=== PATIENT | female | born 1950 | race Caucasian/White ===

== ENCOUNTER 2020-11-01 11:52 | Emergency (ER) | payer BC, MEDICARE ==
[~2020-11-01] VITALS: Ht 167.6 cm; Wt 86.3 kg
--- NOTE | 2020-11-01 12:22 | EKG ---
[address] [address] Test Date: 2020-11-01 Test Time: 12:14:57 Pat Name: JONAH MAJANO Department: Room: Gender: F Chucker: : 1950 Requested By: KIMMY BOWMAN Order Number: [id number] Reading MD: Measurements Intervals [place] Rate: 67 P: 36 AR: 186 QRS: -54 QRSD: 142 T: 26 QT: 414 QTc: 440 Interpretive Statements SINUS RHYTHM ABNORMAL LEFT AXIS DEVIATION LEFT ANTERIOR FASCICULAR BLOCK RIGHT BUNDLE BRANCH BLOCK BIFASCICULAR BLOCK RVH WITH REPOLARIZATION ABNORMALITY QRS(T) CONTOUR ABNORMALITY CONSIDER INFERIOR MYOCARDIAL DAMAGE ABNORMAL ECG RI6.02 No previous ECG available for comparison
[2020-11-01 12:51] LABS: BASO % 1 % (0-3); EOS % 0 % (0-3); HEMATOCRIT 40.3 % (36.0-47.0); HEMOGLOBIN 13.1 g/dL (12.0-15.5); LYMPH # 1.3 x10^3/uL (1.0-4.8); LYMPH % 32 % (24-48); MEAN CORPUSCULAR HEMOGLOBIN 30 pg (25-35); MEAN CORPUSCULAR HGB CONC 32 g/dL (31-37); MEAN CORPUSCULAR VOLUME 91 fL (79-100); MONO # 0.6 x10^3/uL (0.0-1.1); MONO % 16 % (0-9); NEUT # 2.1 x10^3uL (1.8-7.7); NEUT % 52 % (31-73); PLATELET COUNT 256 x10^3/uL (140-400); POTASSIUM ISTAT 3.9 mmol/L (3.5-5.0); RED BLOOD COUNT 4.41 x10^6/uL (3.50-5.40); RED CELL DISTRIBUTION WIDTH 14.3 % (11.5-14.5)
[2020-11-01 12:52] LABS: HEMOGLOBIN ISTAT 13.3 gm/dL
--- NOTE | 2020-11-01 12:52 | PHYS DOC ---
Past History Past Medical History: Diabetes, High Cholesterol, Other Past Surgical History: Tonsillectomy, Other Additional Past Surgical Histo: NO lower left lung lob. Alcohol Use: None General Adult EDM: Chief Complaint: SYNCOPE HPI: HPI: Patient is a 70-year-old female who presents emergency department via EMS after syncopal episode today. Patient reports that she tested positive for COVID-19 on October 302019. She states that she was taking a shower this morning when she began to feel extremely hot and dizzy. Patient states she got out of the shower and proceeded to get ready for the day. She states that she has been out of the shower for about 15 minutes when she passed out and fell to the taylor or. Patient denies any chest pain, shortness of breath, nausea, vomiting, abdominal pain, headache, vision changes prior to passing out. She currently only complains of left elbow pain. She denies any shortness of breath, palpitations, chest pain, dizziness, numbness, tingling, weakness, vision changes, cough, or diaphoresis at this time. Patient reports that she has been eating normally. She denies any measured fever. She currently rates her pain a 2 out of 10 on the pain scale, she states that it is in her left elbow care. She denies any alleviating or exacerbating factors. Review of Systems: Review of Systems: Complete ROS is negative unless otherwise noted in HPI. Physical Exam: PE: See Above Constitutional: Well developed, well nourished, no acute distress, non-toxic appearance. [] HENT: Normocephalic, atraumatic, bilateral external ears normal, nose normal. [] Eyes: PERRLA, EOMI, conjunctiva normal, no discharge. [] Neck: Normal range of motion, no stridor. [] Cardiovascular:Heart rate regular rhythm Lungs & Thorax: Respirations even and unlabored, no retractions, no respiratory distress Abdomen: soft, no tenderness Skin: Warm, dry, no erythema, no rash. [] Extremities: Left elbow: Lateral tenderness to palpation, no obvious deformity, no cyanosis, ROM intact, no edema. [] Neurologic: Alert and oriented X 3, no focal deficits noted. [] Psychologic: Affect normal, judgement normal, mood normal. [] Current Patient Data: Vital Signs: Vital Signs Date Time Temp Pulse Resp B/P (MAP) Pulse Ox O2 Delivery O2 Flow Rate FiO2 11/01/20 11:59 98.0 70 16 108/61 (77) 98 Room Air EKG: EK-sinus rhythm with abnormal left axis deviation, right bundle branch block, no STEMI, read by Dr. Erickson. [] Radiology/Procedures: Radiology/Procedures: PROCEDURE: CHEST AP ONLY CHEST AP ONLY History: Reason: syncopal episode, COVID + / Spl. Instructions: / History: Comparison: None. Findings: Ill-defined mid and left basilar opacities. No pleural effusion. No pneumothorax. Lobulated increased density within the left upper mediastinum. Impression: 1. Ill-defined mid and left basilar opacities, may represent atelectasis or infiltrates including viral pneumonia. 2. Lobulated increased density within the left upper mediastinum, may represent thyromegaly. Recommend comparison with prior imaging studies. CT HEAD WO CONTRAST Clinical indications: syncopal episode COVID + COMPARISON: None available. Technique: Noncontrast axial cross sectional scanning of the head was performed. PQRS compliance Statement One or more of the following individualized dose reduction techniques were utilized for this study: 1. Automated exposure control 2. Adjustment of the mA and/or kV according to patient size 3. Use of iterative reconstruction technique Findings: No acute intracranial hemorrhage or midline shift or mass-effect or hydrocephalus or extra-axial fluid collection is seen. Mild bilateral periventricular white matter hypodensity is seen consistent with chronic small vessel ischemic disease in this age group. No skull fracture or pneumocephalus is seen. No opacification of the mastoid sinuses or the middle ear cavities or the paranasal sinuses is seen. The maxillary sinuses are not completely seen in this study. IMPRESSION: No acute intracranial hemorrhage is seen. Mild chronic small vessel ischemic disease of the periventricular white matter. PROCEDURE: ELBOW LEFT 2V EXAM: ELBOW LEFT 2V 11/01/2020 12:50 PM CLINICAL INDICATION:Left elbow pain after syncopal episode COMPARISON:None TECHNIQUE:2 views of the left elbow FINDINGS:No acute fracture. Alignment is normal. Joint spaces are maintained. Mild enthesopathy at the lateral condyle. No joint effusion or soft tissue abnormality. IMPRESSION:No acute osseous abnormality. Heart Score: Risk Factors: Risk Factors: DM, Current or recent (<one month) smoker, HTN, HLP, family history of CAD, obesity. Risk Scores: Score 0 - 3: 2.5% MACE over next 6 weeks - Discharge Home Score 4 - 6: 20.3% MACE over next 6 weeks - Admit for Clinical Observation Score 7 - 10: 72.7% MACE over next 6 weeks - Early Invasive Strategies Course & Med Decision Making: Course & Med Decision Making Pertinent Labs and Imaging studies reviewed. (See chart for details) 70-year-old female presented emergency room for evaluation following a syncopal episode while at home today. Physical exam was not concerning for stroke or TIA. CT of the patient's head and neck was negative for any acute findings. X-ray of the left elbow revealed no fractures or acute findings. CBC and CMP were unremarkable. UA was concerning for yeast present in the urine. Patient's vital signs were stable throughout. She denies any shortness of breath. EKG revealed no acute findings. Patient's chest x-ray revealed: 1. Ill-defined mid and left basilar opacities, may represent atelectasis or infiltrates including viral pneumonia. 2. Lobulated increased density within the left upper mediastinum, may represent thyromegaly. Recommend comparison with prior imaging studies. Prescriptions were written for Medrol Dosepak and Z-Mike were written. The patient was encouraged to fill the prescriptions take them as directed. She was provided with COVID-19 instructions and instructed to return to the emergency room if she developed a fever that did not respond to medications, or worsening symptoms such as shortness of breath. Patient verbalized an understanding of home care, medications, follow-up, and return to ED instructions and was in agreement with the plan of care. [] [place] Disclaimer: [place] Disclaimer: This electronic medical record was generated, in whole or in part, using a voice recognition dictation system. Departure Departure: Impression: Primary Impression: Episode of syncope Qualified Codes: R55 - Syncope and collapse Additional Impressions: Pneumonia due to COVID-19 virus Yeast UTI Disposition: 01 DC HOME SELF CARE/HOMELESS Condition: STABLE Referrals: PCP,NO (PCP) Patient Instructions: Pneumonia, Adult, [id number], Syncope, [id number] Additional Instructions: Fill prescription(s) and use as directed. Alternate Tylenol or ibuprofen as needed for pain/fever. Increase clear fluids. Avoid airway triggers such as smoke, fragrance, dust, and pollen. May take [id number] cough suppressants as needed. Follow-up with your primary care doctor if symptoms persist. Return to the ER if symptoms worsen, you become short of breath, or you develop a fever that does not respond to medications. You have been tested for or diagnosed with COVID-19. It is an infection caused by a new type of coronavirus. COVID-19 will cause cold-like or mild flu symptoms in most. It can cause more severe symptoms like problems breathing in some. There is no treatment for COVID-19. The body will clear the infection over time. Self-care will help to ease discomfort. Steps to Take: Self-Care Rest as needed. Healthy habits may help you feel better. Steps include: Choose healthy foods including fruits and vegetables. Drink water throughout the day. Get plenty of sleep each night. If you smoke, try to quit. It may ease breathing. Avoid alcohol. Keep Others Healthy The virus can spread to others. Droplets are released every time you sneeze or cough. The droplets can get into the mouth, nose, or eyes of people near you and lead to infection. To lower the chances of spreading COVID-19 to others: Stay at home until your doctor has said it is safe to leave. If you tested positive this will mean staying isolated until both of the following are true: At least 7 days have passed since the start of illness. You are free of fever for at least 72 hours without the use of medicine. During this time: - Avoid public areas, events, or transportation. Do not return to work or school until your doctor has said it is safe to do so. - Call ahead if you need to go to a medical center. Let them know you may have COVID-19. It will help them guide you where to go. They may also ask you to wear a facemask when you come to the office. - If you call for emergency medical services, let them know you may have COVID- 19. While at home: - Try to avoid close contact with others. Stay about 6 feet away. - If possible, spend most of your time in a separate room from others. - Use a face mask if you will be in close contact with others such as sharing a room or vehicle. - Have someone wipe down common surfaces in the home. Use household cutter hand every day on areas like doorknobs, counters, or sinks. - Cough or sneeze into a tissue. Throw the tissue away right after use. If a tissue is not available, cough or sneeze into your elbow. - Wash your hands often. Wash them after sneezing or coughing. Use soap and water and wash for at least 20 seconds. Alcohol based hand fur dry cleaner can be used if soap and water is not available. - Do not prepare food for others. Avoid sharing personal items like forks, spoons, or toothbrushes. - Avoid close contact with pets while you are sick. There is no evidence of the virus passing to pets. This is a safety step until more is known about this virus. Isolation can be frustrating. Social interaction can help. Keep in touch with friends and family through phone and tech options. You can still interact with others in your home, just keep a safe distance of about 6 feet. Follow-up: Your doctors office will check in with you to see if there are any changes in your health. You may be asked to keep track of symptoms to share with them. They will also let you know when you are clear to be in public again. Problems to Look Out For: Contact your doctor if your recovery is not going as you expect. Get emergency care if you have problems such as: - Trouble breathing - Nonstop chest pain or pressure - Changes in awareness, confusion, or problems waking - Lips or face have bluish color - Worsening of symptoms If you think you have an emergency, call for emergency medical services right away. As taken from [facility] Fluconazole (DIFLUCAN) 150 Mg Tablet 1 TAB PO ONCE for yeast in urine for 1 Day, #1 TAB 1 Refill may repeat in 3 days if symptoms persist. Prov: KIMMY BOWMAN FAMILY PSYCHOLOGIST 11/01/20 Methylprednisolone (MEDROL) 4 Mg Tab.ds.pk 1 PKG PO UD for inflammation for 6 Days, #1 PKG 0 Refills Prov: KIMMY BOWMAN FAMILY PSYCHOLOGIST 11/01/20 Azithromycin (AZITHROMYCIN TABLET) 250 Mg Tablet 1 PKG PO UD for pneumonia for 5 Days, #6 TAB 0 Refills 2 the first day followed by 1 for days 2-5 Prov: KIMMY BOWMAN FAMILY PSYCHOLOGIST 11/01/20 KIMMY BOWMAN FAMILY PSYCHOLOGIST Nov 01, 2020 12:52
--- NOTE | 2020-11-01 13:14 | RAD ---
CT HEAD WO CONTRAST Clinical indications: syncopal episode COVID + COMPARISON: None available. Technique: Noncontrast axial cross sectional scanning of the head was performed. PQRS compliance Statement One or more of the following individualized dose reduction techniques were utilized for this study: 1. Automated exposure control 2. Adjustment of the mA and/or kV according to patient size 3. Use of iterative reconstruction technique Findings: No acute intracranial hemorrhage or midline shift or mass-effect or hydrocephalus or extra-axial fluid collection is seen. Mild bilateral periventricular white matter hypodensity is seen consistent with chronic small vessel ischemic disease in this age group. No skull fracture or pneumocephalus is seen. No opacification of the mastoid sinuses or the middle ear cavities or the paranasal sinuses is seen. The maxillary sinuses are not completely seen in this study. IMPRESSION: No acute intracranial hemorrhage is seen. Mild chronic small vessel ischemic disease of the periventricular white matter. Electronically signed by: Bismark Tanner MD (11/01/2020 1:11 PM) [id number]
--- NOTE | 2020-11-01 13:20 | RAD ---
CHEST AP ONLY History: Reason: syncopal episode, COVID + / Spl. Instructions: / History: Comparison: None. Findings: Ill-defined mid and left basilar opacities. No pleural effusion. No pneumothorax. Lobulated increased density within the left upper mediastinum. Impression: 1. Ill-defined mid and left basilar opacities, may represent atelectasis or infiltrates including viral pneumonia. 2. Lobulated increased density within the left upper mediastinum, may represent thyromegaly. Recommend comparison with prior imaging studies. Electronically signed by: Saul Viramontes DO (11/01/2020 1:17 PM) [id number]
--- NOTE | 2020-11-01 13:34 | RAD ---
EXAM: ELBOW LEFT 2V 11/01/2020 12:50 PM CLINICAL INDICATION:Left elbow pain after syncopal episode COMPARISON:None TECHNIQUE:2 views of the left elbow FINDINGS:No acute fracture. Alignment is normal. Joint spaces are maintained. Mild enthesopathy at the lateral condyle. No joint effusion or soft tissue abnormality. IMPRESSION:No acute osseous abnormality. Electronically signed by: Renetta Johnston MD (11/01/2020 1:31 PM) [id number]
[2020-11-01 14:04] VITALS: BP 108/61
[2020-11-01 14:06] LABS: ALBUMIN 3.4 g/dL (3.4-5.0); DIRECT BILIRUBIN 0.1 mg/dL (0.0-0.2); MAGNESIUM 1.9 mg/dL (1.8-2.4); TOTAL BILIRUBIN 0.3 mg/dL (0.2-1.0)
[2020-11-01 14:21] LABS: CLARITY,URINE CLEAR; COLOR,URINE AMBER; GLUCOSE,URINE NEG (NEG)
[2020-11-01 14:22] LABS: BACTERIA,URINE 0 /HPF (0-FEW); BILIRUBIN,URINE NEG (NEG); NITRITE,URINE NEG (NEG); RBC,URINE RARE /HPF (0-2); SQUAMOUS EPITHELIAL CELL,UR OCC /LPF; UROBILINOGEN,URINE 0.2 mg/dL (0.2 mg/dL); WBC,URINE RARE /HPF (0-4); YEAST,URINE PRESENT /HPF
[2020-11-01] MEDS ORDERED: AZIT250T6 PO (14:41)
[2020-11-01] MEDS ORDERED: METH4TAB2 PO (14:45)
[2020-11-01] MEDS ORDERED: FLUC150T PO (15:04)
== END 2020-11-01 15:29 | disposition home or self-care (01) ==
LOC: ER 11:52
DX: U07.1 COVID-19 (principal); J12.89 Other viral pneumonia; R55 Syncope and collapse; B37.49 Other urogenital candidiasis; M25.522 Pain in left elbow; E11.9 Type 2 diabetes mellitus without complications; E78.00 Pure hypercholesterolemia, unspecified; W18.39XA Other fall on same level, initial encounter; Y93.89 Activity, other specified; Y92.89 Other specified places as the place of occurrence of the external cause; Y99.8 Other external cause status
CPT/HCPCS: 36415; 70450; 71045; 73070; 80047; 80076; 81001; 83605; 83735; 85025; 93005; 99285-25

== ENCOUNTER 2020-11-09 10:09 | Inpatient (IN) | payer BC ==
[2020-11-09] VITALS (8 sets, daily range): BP systolic 107–127; BP diastolic 54–73
[~2020-11-09] VITALS: Ht 167.6 cm; Wt 80.7 kg
[~2020-11-09 10:09] MED LIST: AZIT250T6 PO; FLUC150T PO; METH4TAB2 PO
--- NOTE | 2020-11-09 11:00 | PHYS DOC ---
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 Past Surgical History: Tonsillectomy, Other Additional Past Surgical Histo: Left lower lung lobectomy. 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 Was treated for pneumonia with azithromycin. Patient requires no home oxygen and has no known history of sleep apnea. Has not required any oxygen. Son states patient lives in [facility] [place]. Son called her primary care physician there who encouraged him to bring her to the ER to have her evaluated before traveling. Patient with no known history of clotting disorders. Son reports patient is still alert and oriented but is mentally slow as if she has had a shot of liquor. Pt does report some worsening shortness of breath, but no increased work of breathing. Review of Systems: Review of Systems: Constitutional: Denies fever or chills Eyes: Denies change in visual acuity HENT: Denies nasal congestion or sore throat Respiratory: Denies cough or hemoptysis Cardiovascular: Denies chest pain or edema GI: Denies abdominal pain, nausea, vomiting, bloody stools or diarrhea : Denies dysuria Musculoskeletal: Denies back pain or joint pain Integument: Denies rash Neurologic: Denies headache, focal weakness or sensory changes Endocrine: Denies polyuria or polydipsia Lymphatic: Denies swollen glands Psychiatric: Denies depression or anxiety Allergies: Allergies: Allergies Coded Allergies Type Severity Reaction Last Updated Verified Penicillins Allergy Unknown 11/09/20 Yes Physical Exam: PE: Constitutional: Well developed, well nourished, no acute distress, non-toxic appearance. HENT: Normocephalic, atraumatic, Eyes: EOMI, conjunctiva normal, no discharge. Neck: Normal range of motion, supple, Cardiovascular: S1/2 present, regular rhythm Lungs & Thorax: Speaking in full sentences, bilateral equal chest rise, some tachypnea with speaking, 92% on ra Abdomen: soft, no tenderness, Skin: Warm, dry, no erythema, no rash. [] Back: No tenderness, no CVA tenderness. [] Extremities: No tenderness, no cyanosis, no edema Neurologic: Alert and oriented X 3 but does answer slowly to medical questions, normal motor function, normal sensory function, no focal deficits noted. [] Psychologic: Affect normal, judgement normal, mood normal. [] Current Patient Data: Vital Signs: Vital Signs Date Time Temp Pulse Resp B/P (MAP) Pulse Ox O2 Delivery O2 Flow Rate FiO2 11/09/20 10:15 97.1 76 32 125/57 (79) 90 Room Air EKG: EKG: [] Sinus rhythm at 74 bpm, extreme right axis deviation with right bundle branch block, QRS 124, T wave inversion V1, V2, V3 which could represent strain, no JUSTIN/STDs Radiology/Procedures: Radiology/Procedures: IMAGING REPORT Signed PATIENT: KRYSTAL MAJANOCCOUNT: [id number] : 1950 LOCATION: ER AGE: 70 SEX: F EXAM STATUS: REG ER ORD. PHYSICIAN: PATITO NOLASCO DO REASON: soa PROCEDURE: PORTABLE CHEST 1V Examination: PORTABLE CHEST 1V History: Reason: soa / Spl. Instructions: / History: Comparison/Correlation: 11/01/2020 Findings: Portable chest x-ray was performed. Heart size is normal. Pulmonary vasculature is normal. No pneumothorax. Left basilar retrocardiac consolidation is increased. Perihilar interstitial infiltrate noted. Impression: Increased left basilar infiltrates. Right perihilar interstitial infiltrate suggested. Electronically signed by: Emir Modi MD (11/09/2020 11:11 AM) [id number] DICTATED AND SIGNED BY: EMIR MODI MD DATE: 11/09/20 1111 CC: PCP,DOROTHY; PATITO NOLASCO DO ~MTH0 0 Heart Score: Risk Factors: Risk Factors: DM, Current or recent (<one month) smoker, HTN, HLP, family history of CAD, obesity. Risk Scores: Score 0 - 3: 2.5% MACE over next 6 weeks - Discharge Home Score 4 - 6: 20.3% MACE over next 6 weeks - Admit for Clinical Observation Score 7 - 10: 72.7% MACE over next 6 weeks - Early Invasive Strategies Course & Med Decision Making: Course & Med Decision Making Pertinent Labs and Imaging studies reviewed. (See chart for details) Concern for bilateral pneumonia, 10 days after positive covid test with mild hypoxia (p02 61 mmHg). Patient is afebrile with no leukocytosis. No lactic acidosis. Troponin negative. Was started on broad-spectrum antibiotics and will admit to ICU under Dr. Williamson. Patient stable at time of admission and pt/son both agree with this plan. I have spoken with the patient and/or caregivers. I have explained the patient's condition, diagnosis and treatment plan based on the information available to me at this time. I have answered the patient's and/or caregivers questions and answered any concerns. The patient and/or caregivers have as good an understanding of the patient's diagnosis, condition and treatment plan as can be expected at this point. The patient has been stabilized within the capability of the emergency department. The patient will be transported for further care and management or will be moved to an observation or inpatient service. I have communicated with the staff or medical practitioner taking over this patient's care. [place] Disclaimer: [place] Disclaimer: This electronic medical record was generated, in whole or in part, using a voice recognition dictation system. Departure Departure: Impression: Primary Impression: Pneumonia due to COVID-19 virus Additional Impression: Hypoxia Disposition: ADMITTED INPT THIS HOSP Admitting Physician: Tashi Williamson Condition: GUARDED Referrals: PCPDOROTHY (PCP) PATITO NOLASCO DO Nov 09, 2020 11:00
[2020-11-09 11:07] LABS: BGAS PH 7.43 (7.35-7.45)
--- NOTE | 2020-11-09 11:14 | RAD ---
Examination: PORTABLE CHEST 1V History: Reason: soa / Spl. Instructions: / History: Comparison/Correlation: 11/01/2020 Findings: Portable chest x-ray was performed. Heart size is normal. Pulmonary vasculature is normal. No pneumothorax. Left basilar retrocardiac consolidation is increased. Perihilar interstitial infiltrate noted. Impression: Increased left basilar infiltrates. Right perihilar interstitial infiltrate suggested. Electronically signed by: Emir Hicks MD (11/09/2020 11:11 AM) [id number]
[2020-11-09 11:30] LABS: BASO % 0 % (0-3); EOS % 0 % (0-3); HEMOGLOBIN 12.5 g/dL (12.0-15.5); LYMPH # 0.9 x10^3/uL (1.0-4.8); LYMPH % 12 % (24-48); MEAN CORPUSCULAR HEMOGLOBIN 30 pg (25-35); MEAN CORPUSCULAR HGB CONC 33 g/dL (31-37); MEAN CORPUSCULAR VOLUME 89 fL (79-100); MONO # 0.5 x10^3/uL (0.0-1.1); MONO % 7 % (0-9); NEUT # 6.1 x10^3uL (1.8-7.7); NEUT % 81 % (31-73); PLATELET COUNT 293 x10^3/uL (140-400); RED BLOOD COUNT 4.25 x10^6/uL (3.50-5.40); RED CELL DISTRIBUTION WIDTH 14.2 % (11.5-14.5); WHITE BLOOD COUNT 7.5 x10^3/uL (4.0-11.0)
[2020-11-09] MEDS ORDERED: IV NORMAL SALINE 1,000ML 1,000 ML IV ONE (11:30)
[2020-11-09] MEDS ORDERED: AZITHROMYCIN 500 MG in IV NORMAL SALINE 250ML 250 ML IV ONE (11:30)
[2020-11-09] MEDS ORDERED: VANCOMYCIN PER PHARMACY MC PRN (11:30)
[2020-11-09 11:36] LABS: CALCIUM 9.1 mg/dL (8.5-10.1); CREATININE 1.1 mg/dL (0.6-1.0)
[2020-11-09] MEDS ORDERED: VANCOMYCIN 2 GM in IV NORMAL SALINE 500ML 500 ML IV ONE (11:45)
[2020-11-09 11:48] LABS: ALBUMIN 2.8 g/dL (3.4-5.0); ALBUMIN/GLOBULIN RATIO 0.6 (1.0-1.7); TOTAL BILIRUBIN 0.3 mg/dL (0.2-1.0); TOTAL PROTEIN 7.2 g/dL (6.4-8.2)
[2020-11-09] MEDS ORDERED: AZITHROMYCIN 500 MG VIAL. IV ONE (11:51)
[2020-11-09] MEDS ORDERED: IV NORMAL SALINE 250ML 250 ML ONE (11:51)
--- NOTE | 2020-11-09 13:27 | EKG ---
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
[2020-11-09] MEDS ORDERED: ONDANSETRON PF 4 MG/2 ML VIAL. IVP PRN (13:30)
[2020-11-09] MEDS ORDERED: ACETAMINOPHEN 325 MG TABLET PO PRN (13:30)
[2020-11-09 13:54] LABS: BACTERIA,URINE 0 /HPF (0-FEW); BILIRUBIN,URINE NEG (NEG); CLARITY,URINE CLEAR; COLOR,URINE YELLOW; GLUCOSE,URINE NEG (NEG); HYALINE CASTS, URINE OCC /HPF; NITRITE,URINE NEG (NEG); RBC,URINE 0 /HPF (0-2); SQUAMOUS EPITHELIAL CELL,UR FEW /LPF; UROBILINOGEN,URINE 0.2 mg/dL (0.2 mg/dL); WBC,URINE OCC /HPF (0-4)
[2020-11-09] MEDS ORDERED: IV NORMAL SALINE 100ML 100 ML ONE (13:59)
[2020-11-09] MEDS ORDERED: CEFEPIME HCL 2 GM VIAL IV ONE (13:59)
[2020-11-09 14:01] LABS: INFLUENZA A PATIENT NEGATIVE (NEGATIVE); INFLUENZA B PATIENT NEGATIVE (NEGATIVE)
[2020-11-09] MEDS ORDERED: FAMOTIDINE 20 MG TABLET PO ONE (14:30)
--- NOTE | 2020-11-09 14:30 | NUR ---
Patient arrived on unit via EMS from [facility] ED where she presented with complaints of increased SOB with AMS; patient had a positive COVID-19 diagnosis on 10/30/20, CXR showed increased infiltrates from previous visit. Patient was alert, pleasant, and oriented with some mild confusion to the date. Patient oriented to her room, including toilet, call light, and phone. She has PIV in each arm, a 20g in the right forearm and a 20g in her left antecubital. Patient in isolation r/t positive COVID-19 test. Will continue to monitor and report to oncoming shift.
--- NOTE | 2020-11-09 14:38 | HP ---
ADMIT DATE: 11/09/2020 ATTENDING PHYSICIAN: Dr. Bar. CHIEF COMPLAINT: Shortness of breath. HISTORY OF PRESENT ILLNESS: The patient is a pleasant 70-year-old female who is normally fairly active. She has been visiting her son since Thanks. She lives in [place], [place]. She had increasing shortness of breath with bilateral infiltrates on chest x-ray. She was diagnosed with COVID-19 pneumonia 10 days ago. She was sent home with Zithromax. She is not any better. Today, the follow up x-ray shows bilateral infiltrates 1 on the perihilar area and another nodular infiltrate in the left lower lobe. Oxygen saturations are marginal. She has a dry nonproductive cough. No clotting disorders. She does report some worsening shortness of breath with exertion, but no increased work of breathing. She is admitted then for further treatment and evaluation. 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 She has some mild COPD. She has borderline diabetes. PAST SURGICAL HISTORY: Tonsillectomy and a left lower lobectomy and calcification of the lungs. ALLERGIES: SHE HAS DRUG ALLERGIES TO PENICILLIN. CURRENT MEDICINES: Include aspirin and a statin drug, which she does not know the dosage. SOCIAL HISTORY: She is a nonsmoker, nondrinker. She has smoked up to about 10 years ago. FAMILY HISTORY: Her mom at age 95 of old age. Father of heart disease at age 68. She is single. She is here visiting her son and family. REVIEW OF SYSTEMS: Significant for low-grade fevers, chills, rigors, and dry and nonproductive cough. No nausea or vomiting, generalized weakness. Mild loss of taste and sense. All other systems reviewed and turned to be negative. PHYSICAL EXAMINATION: GENERAL: When I saw her, this is a pleasant, middle-aged female. INITIAL VITAL SIGNS: In the ED showed a blood pressure 125/57, pulse is 76 and regular. She was afebrile, oxygen saturation 90% on room air. HEENT: Head is without trauma. Pupils are reactive. Sclerae nonicteric. Oropharynx is clear. NECK: Supple, no bruits identified. LUNGS: Otherwise, clear to auscultation. CARDIOVASCULAR: Showed regular heart tones. No gallops. ABDOMEN: Soft. EXTREMITIES: Without edema. NEUROLOGIC: Focally intact. SKIN: Warm and dry. Speech is fluent. PERTINENT LABORATORY STUDIES AND X-RAY STUDIES: The chest x-ray showed pulmonary vasculature is normal. Left basilar retrocardiac consolidation along with perihilar infiltrates identified. LABORATORY STUDIES: Hemoglobin is 12.5 g/dL with a white count of 7500. Electrolytes are within normal range. Creatinine is 1.1 mg percent. ASSESSMENT: 1. This 70-year-old female, visiting from out of town, has bilateral pneumonia. She tested positive for COVID 10 days ago. 2. Hyperlipidemia. 3. History of recurring polychondritis, previous left lower lobectomy. 4. Mild borderline diabetes. PLAN: 1. Admit to the ICU. 2. Supplemental oxygen as needed. 3. Decadron has been ordered. 4. Zinc. 5. Pepcid. 6. Diet as tolerated. 7. Followup x-ray in a few days. HUANG BAR MD DR: TERRI/estella JOB#: [id number] / [id number]
[2020-11-09] MEDS: CEFEPIME HCL 2 GM in IV NORMAL SALINE 100ML 100 ML IV SCH ×2 (14:43→21:55)
[2020-11-09] MEDS: DEXAMETHASONE SOD PHOS 10 MG/ML VIAL. IV SCH (14:44)
[2020-11-09] MEDS ORDERED: CITA20TA6 PO (15:31)
[2020-11-09] MEDS ORDERED: ATOR40TA59 PO (15:31)
[2020-11-09] MEDS ORDERED: FAMO20TA5 PO (15:31)
[2020-11-09] MEDS ORDERED: PRED-220 PO (15:31)
[2020-11-09] MEDS ORDERED: SULF1TAB24 PO (15:31)
[2020-11-09] MEDS ORDERED: AMIT25TA PO (15:31)
[2020-11-09] MEDS ORDERED: CLOP75TA PO (15:31)
[2020-11-09] MEDS: CLOPIDOGREL BISULFATE 75 MG TABLET PO SCH (18:15)
[2020-11-09] MEDS: CITALOPRAM 20 MG TABLET. PO SCH (18:15)
[2020-11-09] MEDS: FAMOTIDINE 20 MG TABLET PO SCH (20:34)
[2020-11-09] MEDS: ATORVASTATIN CALCIUM 20 MG TABLET PO SCH (20:34)
[2020-11-09] MEDS: AMITRIPTYLINE HCL 10 MG TABLET PO SCH (20:34)
[2020-11-10] VITALS (22 sets, daily range): BP systolic 101–142; BP diastolic 47–75
[2020-11-10] MEDS: CEFEPIME HCL 2 GM in IV NORMAL SALINE 100ML 100 ML IV SCH (05:33)
--- NOTE | 2020-11-10 05:45 | NUR ---
Pt resting in bed with eyes closed at change of shift. Pt A&Ox4, is AL[place] and can be forgetful at times but very pleasant and cooperative. Pt ate HS snack independently and stated that she "just wants to go to sleep, I have been so tired". Pt slept great during night. Once pt fell asleep (about 1030), O2 sats dipped down to 88%, placed on 2L NC to keep sats >92% and did fine the rest of the night. No fevers.
--- NOTE | 2020-11-10 07:18 | NUR ---
Pharmacy Vancomycin Dosing Note S:Consulted to monitor and dose vancomycin started . O:JONAH MAJANO is a 70 year old F with Pneumonia, . Height: 5 feet, 6 inches Weight: 80.7 kg [place] Body Weight: 59.30 Adjusted Body Weight: 67.58 Dosing Weight: Actual Other Antibiotics: CEFEPIME 2GRAM Q8HRS LABS: Last BUN: 19 Last Creatinine: 1.1 Creatinine Clearance: Last WBC: 7.5 Last Procalcitonin: Tmax (past 24 hours): Microbiology: I/O: Drug Levels: Last level: on at Last dose given 11/09/20 at 1200 Vancomycin Dosing: Loading Dose: 2000 mg x1 Dosing Weight: Actual Target Trough: 15-20 A: Based on: P: 1. Begin Vancomycin 1250 mg IV q24h 2. Follow up Trough level on 11/11/20 at 1130 3. Pharmacy will continue to monitor, follow and adjust therapy as needed. [facility], 11/10/20 0718
[2020-11-10] MEDS: CLOPIDOGREL BISULFATE 75 MG TABLET PO SCH (08:21)
[2020-11-10] MEDS: FAMOTIDINE 20 MG TABLET PO SCH ×2 (08:21→20:02)
[2020-11-10] MEDS: ZINC SULFATE 220 MG CAPSULE. PO SCH (08:22)
[2020-11-10] MEDS: DEXAMETHASONE SOD PHOS 10 MG/ML VIAL. IV SCH (08:22)
[2020-11-10] MEDS: CITALOPRAM 20 MG TABLET. PO SCH (08:22)
[2020-11-10] MEDS ORDERED: FLU VACC QS 2020-21(6MOS+)/PF 0.5 ML SYRINGE. VAX IM ONE (09:00)
[2020-11-10] MEDS: LACTOBACILLUS RHAMNOSUS GG 1 CAPSULE. PO SCH ×2 (09:39→20:02)
--- NOTE | 2020-11-10 10:15 | NUR ---
Patient has been calm, compliant, and pleasant. Patient was short of breath after walking to toilet and back. Provided patient with incentive spirometer and education on how to use IS. Patient was able to correctly demonstrate use of IS. Instructed patient to attempt to use IS about ten times each hour. Will reinforce patient education as needed.
[2020-11-10] MEDS: IPRATROPIUM/ALBUTEROL 20/100mcg/INH INHALER. INH SCH ×4 (10:49→23:40)
[2020-11-10] MEDS: ALBUTEROL SULFATE 8GM INHALER. INH PRN ×2 (10:50→22:01)
--- NOTE | 2020-11-10 11:52 | PN ---
DATE: 11/10/2020 ATTENDING PHYSICIAN: Dr. Bar. SUBJECTIVE: Tired, minimal short of breath requiring small amount of supplemental oxygen. No cough. She is eating adequately. OBJECTIVE FINDINGS: VITAL SIGNS: Temperature today is 97.6 degrees Fahrenheit, blood pressure 136/65, pulse is 90 and regular and her oxygen saturations are 95% on 2 liters of nasal cannula. HEENT: Head is without trauma. Pupils are reactive. Sclerae are nonicteric. Oropharynx is clear. NECK: Supple, no bruits. No stridor. LUNGS: Coarse rhonchi at the bases. CARDIOVASCULAR: Showed regular heart tones. No gallops. ABDOMEN: Soft. EXTREMITIES: Without edema. NEUROLOGIC: Focally intact. Speech is fluent. SKIN: Warm and dry. ASSESSMENT: 1. A 70-year-old female with COVID-19 pneumonia bilaterally. 2. Relapsing polychondritis by history. 3. Previous left lower lobectomy. 4. Hyperlipidemia. 5. Borderline diabetes. PLAN: 1. Keep in ICU. 2. Supplemental oxygen. 3. Decadron will be continued. 4. Zinc and Pepcid. 5. Diet as tolerated. 6. Continue cefepime. 7. Followup x-rays in a few days. HUANG BAR MD DR: TERRI/estella JOB#: [id number] / [id number]
[2020-11-10] MEDS ORDERED: VANCOMYCIN 1.25 GM in IV NORMAL SALINE 250ML 250 ML IV SCH (12:00)
[2020-11-10] MEDS: CEFEPIME HCL 1 GM in IV NORMAL SALINE 50ML 50 ML IV SCH ×2 (14:00→22:01)
[2020-11-10] MEDS: AMITRIPTYLINE HCL 10 MG TABLET PO SCH (20:02)
[2020-11-10] MEDS: ATORVASTATIN CALCIUM 20 MG TABLET PO SCH (20:03)
[2020-11-11] VITALS (13 sets, daily range): BP systolic 89–151; BP diastolic 51–91
[2020-11-11] MEDS: IPRATROPIUM/ALBUTEROL 20/100mcg/INH INHALER. INH SCH ×5 (03:55→20:14)
[2020-11-11] MEDS: CEFEPIME HCL 1 GM in IV NORMAL SALINE 50ML 50 ML IV SCH ×4 (05:30→21:01)
--- NOTE | 2020-11-11 06:30 | NUR ---
Pt awake in bed playing on cellphone at change of shift. Pt A&Ox4, [place] especially when hearing aids are out but very pleasant and cooperative. Pt refused HS snack, stating that "dinner was enough." Pt slept good during the night on 2L NC to keep sats >92%. Pt up to bathroom x2, stated that she felt better on her feet and less SOA.
[2020-11-11] MEDS: ZINC SULFATE 220 MG CAPSULE. PO SCH (08:32)
[2020-11-11] MEDS: CLOPIDOGREL BISULFATE 75 MG TABLET PO SCH (08:32)
[2020-11-11] MEDS: FAMOTIDINE 20 MG TABLET PO SCH ×2 (08:32→20:12)
[2020-11-11] MEDS: LACTOBACILLUS RHAMNOSUS GG 1 CAPSULE. PO SCH ×2 (08:32→20:12)
[2020-11-11] MEDS: CITALOPRAM 20 MG TABLET. PO SCH (08:32)
[2020-11-11] MEDS: DEXAMETHASONE SOD PHOS 10 MG/ML VIAL. IV SCH (08:32)
[2020-11-11] MEDS: ALBUTEROL SULFATE 8GM INHALER. INH PRN ×2 (08:32→18:38)
[2020-11-11] MEDS ORDERED: SMX/TMP 800/160MG 2TABLET STARTPACK. PO SCH (09:00)
[2020-11-11] MEDS ORDERED: predniSONE 10 MG TABLET PO SCH (09:00)
--- NOTE | 2020-11-11 13:33 | PN ---
DATE: 11/11/2020 ATTENDING PHYSICIAN: Dr. Bar. SUBJECTIVE: She is less short of breath. She has a mild nonproductive cough. She is a little bit stronger today. She is eating well. There is no nausea, vomiting, fevers or chills. We took her off of supplemental oxygen and she is maintaining her saturations. OBJECTIVE FINDINGS: VITAL SIGNS: Her blood pressure this morning is 121/51 mmHg, pulse is 62 and regular, temperature 98.0 degrees Fahrenheit, oxygen saturation 92% on room air. HEENT: Head is without trauma. Pupils are reactive. Sclerae are nonicteric. NECK: Supple. No stridor. LUNGS: Good breath sounds with minimal rhonchi at the bases. CARDIOVASCULAR: Showed regular heart tones. No gallops. Peripheral pulses are palpable and full. ABDOMEN: Soft, scaphoid, nontender, no organomegaly. Bowel sounds are hypoactive. EXTREMITIES: Showed no cyanosis or edema. NEUROLOGIC: Focally intact. Speech is fluent. Grooving Lathe Tender intact. SKIN: Warm and dry. LABORATORY DATA: Chest x-ray followup is pending at this time. ASSESSMENT: 1. A 70-year-old female with COVID-19 pneumonia. She has infiltrates bilaterally. 2. History of relapsing polychondritis, on chronic steroid therapy. 3. Posterior left lower lobectomy for polychondritis. 4. Hyperlipidemia. 5. Borderline diabetes. PLAN: 1. Continue telemetry monitoring. 2. Wean down supplemental oxygen to room air. 3. Decadron will be continued. 4. Diet as tolerated. 5. Continue cefepime. 6. Follow up chest x-ray. If she is improved to a point that she is eating and she is having adequate saturations on room air, she can be discharged for convalescence at home. She will continue her quarantine at her son's house. HUANG BAR MD DR: TERRI/estella JOB#: [id number] / [id number]
--- NOTE | 2020-11-11 13:34 | RAD ---
XR CHEST 1V 11/11/2020 9:02 AM INDICATION: Pneumonia, Covid positive COMPARISON: 11/09/2020 TECHNIQUE: Portable frontal view of the chest is provided. Findings/ impression: The cardiomediastinal silhouette is within normal limits. Persistent perihilar interstitial airspace disease is noted predominantly involving the right suprahilar region and left infrahilar region/retro cardiac space. There are no significant pleural effusions. There is no pulmonary vascular congestion. No pneumothora x. No suspicious osseous abnormality. Electronically signed by: Annette Layton MD (11/11/2020 10:11 AM) [facility]
--- NOTE | 2020-11-11 13:38 | NUR ---
Patient has been calm, compliant, and pleasant. Lung sounds are improved, and SpO2 has been about 91-94% since discontinuing O2 via NC. Patient did desat into the low 80s% when transferring to the toilet and back. She states that she continues to feel tired but cannot sleep. Patient currently sitting up in chair using her phone and tablet. Will continue to monitor.
--- NOTE | 2020-11-11 18:30 | NUR ---
Patient has been short of breath, SpO2=87-89% since using toilet. Provided patient with prn inhaler. Patient states she has had mild relief, will continue to monitor and report to oncoming shift.
[2020-11-11] MEDS: AMITRIPTYLINE HCL 10 MG TABLET PO SCH (20:13)
[2020-11-11] MEDS: ATORVASTATIN CALCIUM 20 MG TABLET PO SCH (20:13)
[2020-11-12 00:15] VITALS: BP 136/67
--- NOTE | 2020-11-12 02:49 | NUR ---
pt was in bed upon assessment and med pass. pt is able to take meds whole. pt is pleasant to talk to. pt is on 2L NC due to pts 02 sat being 89%. pt is a mouth breather and so de-sats when up to bathroom. pt has to be reminded to breath through her nose. pt had no complaints through the night and has slept.
[2020-11-12] MEDS: IPRATROPIUM/ALBUTEROL 20/100mcg/INH INHALER. INH SCH ×6 (04:00→20:20)
[2020-11-12 04:21] VITALS: BP 153/73
[2020-11-12] MEDS: CEFEPIME HCL 1 GM in IV NORMAL SALINE 50ML 50 ML IV SCH ×3 (05:06→21:52)
[2020-11-12] MEDS: ALPRAZolam 0.25 MG TABLET PO SCH ×4 (08:00→20:22)
[2020-11-12] MEDS: CITALOPRAM 20 MG TABLET. PO SCH (08:36)
[2020-11-12] MEDS: LACTOBACILLUS RHAMNOSUS GG 1 CAPSULE. PO SCH ×2 (08:36→20:21)
[2020-11-12] MEDS: ZINC SULFATE 220 MG CAPSULE. PO SCH (08:36)
[2020-11-12] MEDS: DEXAMETHASONE SOD PHOS 10 MG/ML VIAL. IV SCH (08:36)
[2020-11-12] MEDS: CLOPIDOGREL BISULFATE 75 MG TABLET PO SCH (08:38)
[2020-11-12] MEDS: FAMOTIDINE 20 MG TABLET PO SCH ×2 (08:38→20:22)
[2020-11-12 08:57] VITALS: BP 144/71
[2020-11-12 13:00] VITALS: BP 133/71
[2020-11-12 17:33] VITALS: BP 139/69
--- NOTE | 2020-11-12 17:53 | PN ---
DATE: 11/12/2020 ATTENDING PHYSICIAN: Dr. Bar. SUBJECTIVE: The patient is still dyspneic with minimal exertion. Her chest x-ray yesterday is lagging the clinical response. There is a strong anxiety component. She is concerned about her living arrangement. She lives with her sister and [id number]. [id number] has significant heart disease and she is very afraid that she will give him the virus causing his demise. OBJECTIVE FINDINGS: VITAL SIGNS: Blood pressure today is 144/71 mmHg, pulse 80 and regular, temperature 98.7 degrees Fahrenheit, and oxygen saturation 90% on room air. HEENT: Head is without trauma. Pupils are reactive. Sclerae nonicteric. Oropharynx is clear. NECK: Supple, no bruits. LUNGS: Minimal rhonchi. CARDIOVASCULAR: Showed regular heart tones. ABDOMEN: Soft. NEUROLOGIC: Intact. No deficits. SKIN: Warm and dry. LABORATORY DATA: Chest x-ray as noted. ASSESSMENT: 1. A 70-year-old female with coronavirus pneumonia. 2. Acute on chronic respiratory failure. 3. History of relapsing polychondritis. 4. History of left lower lobectomy. 5. Hyperlipidemia. 6. Borderline diabetes. PLAN: 1. Continue current regimen. 2. I shall add scheduled dose of Xanax for anxiety. 3. Continue Decadron. 4. Diet as tolerated. 5. Continue cefepime as ordered. HUANG BAR MD DR: TERRI/estella JOB#: [id number] / [id number]
[2020-11-12 20:05] VITALS: BP 169/77
[2020-11-12] MEDS: ATORVASTATIN CALCIUM 20 MG TABLET PO SCH (20:22)
[2020-11-12] MEDS: AMITRIPTYLINE HCL 10 MG TABLET PO SCH (20:22)
[2020-11-13 00:25] VITALS: BP 157/72
[2020-11-13] MEDS: IPRATROPIUM/ALBUTEROL 20/100mcg/INH INHALER. INH SCH ×6 (04:00→20:18)
[2020-11-13 04:04] VITALS: BP 166/75
[2020-11-13] MEDS: CEFEPIME HCL 1 GM in IV NORMAL SALINE 50ML 50 ML IV SCH ×3 (05:47→21:49)
[2020-11-13 08:00] VITALS: BP 117/97
[2020-11-13] MEDS: FAMOTIDINE 20 MG TABLET PO SCH ×2 (08:13→20:18)
[2020-11-13] MEDS: CITALOPRAM 20 MG TABLET. PO SCH (08:13)
[2020-11-13] MEDS: ZINC SULFATE 220 MG CAPSULE. PO SCH (08:13)
[2020-11-13] MEDS: LACTOBACILLUS RHAMNOSUS GG 1 CAPSULE. PO SCH ×2 (08:13→20:18)
[2020-11-13] MEDS: DEXAMETHASONE SOD PHOS 10 MG/ML VIAL. IV SCH (08:13)
[2020-11-13] MEDS: ALPRAZolam 0.25 MG TABLET PO SCH ×4 (08:13→20:18)
[2020-11-13] MEDS: CLOPIDOGREL BISULFATE 75 MG TABLET PO SCH (08:13)
[2020-11-13 14:53] VITALS: BP 130/63
[2020-11-13 20:00] VITALS: BP 153/81
[2020-11-13] MEDS: AMITRIPTYLINE HCL 10 MG TABLET PO SCH (20:18)
[2020-11-13] MEDS: ATORVASTATIN CALCIUM 20 MG TABLET PO SCH (20:19)
--- NOTE | 2020-11-13 23:51 | PN ---
DATE: 11/13/2020 ATTENDING PHYSICIAN: Dr. Huang Bar. SUBJECTIVE: The patient is doing better. She is less dyspneic. She is a little stronger. The Xanax has really helped. She is not having nearly as much anxiety. I had a long discussion with her son, who has planned for her short-term and long-term discharge planning at his house. OBJECTIVE FINDINGS: VITAL SIGNS: Blood pressure today is 166/75 mmHg, pulse 73 and regular, temperature 98.4 degrees Fahrenheit, and her oxygen saturation are maintaining 92% on room air. HEENT: Head is without trauma. Pupils are reactive. Sclerae nonicteric. CARDIOVASCULAR: Showed regular heart tones. LUNGS: When I listened to her lungs, there is minimal wheezing in the left upper airways. I can still hear some rhonchi at the right base. There is no evidence of egophony. There is good air movement without any stridor. ABDOMEN: Soft. EXTREMITIES: Without edema. NEUROLOGIC: Focally intact. SKIN: Warm and dry. ASSESSMENT: 1. A 70-year-old female with COVID-19 pneumonia. She has bilateral infiltrates. 2. Acute on chronic respiratory failure, improving. We are able to wean her off of supplemental oxygen. 3. History of relapsing polychondritis. 4. History of left lower lobectomy. 5. Hyperlipidemia. 6. Borderline diabetes. PLAN: 1. Continue current regimen. 2. Diet as tolerated. 3. Continue Decadron. 4. I shall order a followup x-ray for tomorrow morning. HUANG BAR MD DR: TERRI/estella JOB#: [id number] / [id number]
[2020-11-14 00:11] VITALS: BP 163/84
[2020-11-14] MEDS: IPRATROPIUM/ALBUTEROL 20/100mcg/INH INHALER. INH SCH ×6 (04:00→19:39)
[2020-11-14] MEDS: CEFEPIME HCL 1 GM in IV NORMAL SALINE 50ML 50 ML IV SCH ×3 (05:52→21:29)
--- NOTE | 2020-11-14 08:24 | RAD ---
XR CHEST 1V 11/14/2020 7:10 AM INDICATION: Shortness of breath, Covid positive COMPARISON: 11/11/2020 TECHNIQUE: Portable frontal view of the chest is provided. Findings/ impression: The cardiomediastinal silhouette is within normal limits. Similar patchy interstitial airspace diseas e identified in the right upper lobe, right lower lobe and left infrahilar region. There is more cons picuous nodular opacity in the left lower lobe measuring 2.5 x 2.8 cm. Further characterization with CT chest is recommended. There are no significant pleural effusions. There is no pulmonary vascular congestion. No pneumothora x. No suspicious osseous abnormality. Electronically signed by: Annette Layton MD (11/14/2020 8:22 AM) [id number]
[2020-11-14] MEDS: ALPRAZolam 0.25 MG TABLET PO SCH ×4 (09:00→21:29)
[2020-11-14] MEDS: DEXAMETHASONE SOD PHOS 10 MG/ML VIAL. IV SCH (09:42)
[2020-11-14] MEDS: LACTOBACILLUS RHAMNOSUS GG 1 CAPSULE. PO SCH ×2 (09:42→21:29)
[2020-11-14] MEDS: CLOPIDOGREL BISULFATE 75 MG TABLET PO SCH (09:42)
[2020-11-14] MEDS: FAMOTIDINE 20 MG TABLET PO SCH ×2 (09:42→21:29)
[2020-11-14] MEDS: ZINC SULFATE 220 MG CAPSULE. PO SCH (09:42)
[2020-11-14] MEDS: CITALOPRAM 20 MG TABLET. PO SCH (09:43)
[2020-11-14 11:20] VITALS: BP 125/60
--- NOTE | 2020-11-14 12:34 | PN ---
DATE: 11/14/2020 ATTENDING PHYSICIAN: Dr. Huang Bar SUBJECTIVE: The patient is improved. She has not required supplemental oxygen for the last 48 hours. She has a minimal dry and nonproductive cough. She is afebrile. There is still a strong anxiety component about the short-term and long-term plans. She states that the Xanax has helped her symptoms. OBJECTIVE FINDINGS: VITAL SIGNS: Blood pressure today is 163/84, pulse 62 and regular, temperature 97.4 degrees Fahrenheit, and her oxygen saturation 92% on room air. HEENT: Head is without trauma. Pupils are reactive. Oropharynx clear. NECK: Supple. No stridor. LUNGS: Good breath sounds. CARDIOVASCULAR: Showed regular heart tones. No gallops. ABDOMEN: Soft. EXTREMITIES: Without edema. NEUROLOGIC: Focally intact. No deficits. ASSESSMENT: 1. A 70-year-old female with COVID-19 pneumonia. Her chest x-ray today shows improvement in clearing of the left lower lobe infiltrate. 2. Acute on chronic respiratory failure, improving. She has adequate saturations on room air. 3. History of relapsing polychondritis. 4. History of left lower lobectomy. 5. Hyperlipidemia. 6. Borderline diabetes. PLAN: 1. Continue current regimen. 2. Continue Xanax as scheduled. 3. Diet as tolerated. 4. Finish a course of Decadron. 5. Tentative discharge plans for discharge tomorrow morning. HUANG BAR MD DR: TERRI/estella JOB#: [id number] / [id number]
[2020-11-14] MEDS ORDERED: HYDROcodone/CHLORPHEN POLIS 5 ML SUS.ER.12H PO PRN (12:45)
[2020-11-14] MEDS: ALBUTEROL SULFATE 8GM INHALER. INH PRN (12:47)
[2020-11-14 16:32] VITALS: BP 129/68
[2020-11-14 19:30] VITALS: BP 111/65
[2020-11-14] MEDS: AMITRIPTYLINE HCL 10 MG TABLET PO SCH (21:29)
[2020-11-14] MEDS: ATORVASTATIN CALCIUM 20 MG TABLET PO SCH (21:29)
[2020-11-14 22:57] VITALS: BP 165/81
[2020-11-15] MEDS: IPRATROPIUM/ALBUTEROL 20/100mcg/INH INHALER. INH SCH ×3 (04:00→08:15)
[2020-11-15] MEDS: CEFEPIME HCL 1 GM in IV NORMAL SALINE 50ML 50 ML IV SCH (05:37)
--- NOTE | 2020-11-15 06:00 | NUR ---
Shift Note: Pt had an uneventful night. Pt is a/o x4, VSS (on room air sating 91-92% at HS), no c/o pain or n/v at this time, IV antibiotics given as ordered otherwise IV is saline locked, pt voiding clear yellow urine and ambulating independently. Addendum: 11/15/20 at 0628 by GURU JEFFERY RN Noted this am pt had spilled some water and needed her bed and gown changed. When pt was standing at end of bed to change her gown while RN changed lines pt desated to 80% on RA, after about 10 minutes pt was sating 87% on RA with visualized labored breathing, she had been WNL on O2 sat when VS checked, however activity greatly affects pt ability to maintain a normal oxygen saturation.
[2020-11-15 06:30] VITALS: BP 127/75
[2020-11-15] MEDS: ZINC SULFATE 220 MG CAPSULE. PO SCH (08:14)
[2020-11-15] MEDS: CITALOPRAM 20 MG TABLET. PO SCH (08:14)
[2020-11-15] MEDS: DEXAMETHASONE SOD PHOS 10 MG/ML VIAL. IV SCH (08:14)
[2020-11-15] MEDS: ALPRAZolam 0.25 MG TABLET PO SCH (08:14)
[2020-11-15] MEDS: CLOPIDOGREL BISULFATE 75 MG TABLET PO SCH (08:14)
[2020-11-15] MEDS: LACTOBACILLUS RHAMNOSUS GG 1 CAPSULE. PO SCH (08:14)
[2020-11-15] MEDS: FAMOTIDINE 20 MG TABLET PO SCH (08:14)
--- NOTE | 2020-11-15 10:42 | DS ---
DATE OF DISCHARGE: 11/15/2020 ATTENDING PHYSICIAN: Dr. Huang Bar FINAL DISCHARGE DIAGNOSES: 1. COVID-19 pneumonia. 2. Acute on chronic respiratory failure, improved. She now has adequate saturations on room air. 3. History of relapsing polychondritis. 4. Borderline diabetes mellitus. 5. History of left lower lobectomy. 6. Hyperlipidemia. HISTORY AND PHYSICAL: This is a pleasant 70-year-old female visiting from [place]. Her son had COVID-19. She developed it. She had increasing shortness of breath and respiratory distress. She was admitted for further treatment and evaluation. PHYSICAL EXAMINATION: Please see the dictated note. PERTINENT LABORATORY AND X-RAY STUDIES: Several x-rays were done and prior to discharge on the fifth hospital day, she had a repeat chest x-ray, which showed patchy interstitial airspace disease, but improved with better aeration. Her hemoglobin is maintained at 12.5 grams per deciliter with a white count of 7500. Electrolytes were within normal range. Creatinine is 1.1 mg percent. Cardiac enzymes negative for coronary ischemia. Urine was entirely clear. Serology: Influenza A and B were negative. COURSE IN THE HOSPITAL: The patient was admitted. She was started on supplemental oxygen along with IV Decadron, zinc and intravenous cefepime. She did well. Oxygen saturations were improved and we were able to wean her off supplemental oxygen the last 3 days of the hospitalization. She did not require any extra oxygen. Diet was advanced. She had a strong anxiety component. I did think that Xanax would be helped and she tolerated without any problems. On the sixth hospital day, her vital signs were quite stable. Her blood pressure was 127/75, pulse is 96.8 degrees Fahrenheit, oxygen saturation adequate. She is discharged home with 5 more days of cephalexin 500 mg p.o. t.i.d. She will continue her Xanax 0.25 mg t.i.d., Lipitor, prednisone 10 mg daily along with her Plavix 75 mg daily. I explained to her she is most likely contagious from least 10 days. She can return to her home in [place] at her convenience. The patient was then discharged from our hospital in stable condition with explicit instructions and followup care. HUANG BAR MD DR: TERRI/estella JOB#: [id number] / [id number]
[2020-11-15] MEDS ORDERED: CEPH500C PO (11:33)
[2020-11-15 12:00] VITALS: BP 116/60
--- NOTE | 2020-11-15 12:08 | NUR ---
DC note: Pt alert and oriented, called in additional antibiotic prescription to [facility]. Pt has all belongings, reviewed discharge ppwrk with son and patient. Son inquired about home health care, relayed message to Kenisha Vegas. Son has Kenisha's phone number. Told son that Kenisha would call him when she has an accepting agency for [facility]. All questions answered, son was very appreciative when he picked up his mother.
[2020-11-15] MEDS ORDERED: CEPHALEXIN 250 MG CAPSULE PO SCH (14:00)
== END 2020-11-15 12:05 | disposition home health service (06) | DRG 177 ==
LOC: ER 10:09 → ICU 13:20
PROVIDERS: ADMIT Hospitalist; ATTEND Hospitalist
DX: U07.1 COVID-19 (principal); J96.21 Acute and chronic respiratory failure with hypoxia; J12.89 Other viral pneumonia; J44.0 Chronic obstructive pulmonary disease with (acute) lower respiratory infection; E11.9 Type 2 diabetes mellitus without complications; E78.00 Pure hypercholesterolemia, unspecified; E78.5 Hyperlipidemia, unspecified; F41.9 Anxiety disorder, unspecified; I45.10 Unspecified right bundle-branch block; Z79.02 Long term (current) use of antithrombotics/antiplatelets; Z79.52 Long term (current) use of systemic steroids; Z82.49 Family history of ischemic heart disease and other diseases of the circulatory system; Z86.73 Personal history of transient ischemic attack (TIA), and cerebral infarction without residual deficits; Z90.2 Acquired absence of lung [part of]; Z88.0 Allergy status to penicillin; Z79.899 Other long term (current) drug therapy
CPT/HCPCS: 36415; 71045; 80053; 81001; 82550; 82803; 83605; 83880; 84484; 85025; 87040; 87804; 90471; 90686; 93005; 96365; 96368; 96375; J0456; J0692; J1100; J3370; J7040; J7050; J7613; 99285-25; J7030